=== PATIENT | female | born 1980 | race Asian ===

== ENCOUNTER 2017-08-07 07:50 | Emergency (ER) | payer SELFPAY ==
[~2017-08-07] VITALS: Ht 160 cm; Wt 59.0 kg
[2017-08-07] MEDS ORDERED: TRAZ-129 PO (07:58)
[2017-08-07] MEDS ORDERED: ALBUTEROL (0.083%) 2.5MG/3ML NEB HHN STA (14:09)
[2017-08-07 16:20] VITALS: BP 112/70
== END 2017-08-07 16:23 | disposition home or self-care (01) ==
LOC: ER 08:01
DX: J20.9 Acute bronchitis, unspecified (principal); F17.210 Nicotine dependence, cigarettes, uncomplicated; F20.9 Schizophrenia, unspecified; Z86.19 Personal history of other infectious and parasitic diseases
CPT/HCPCS: 71010; 81025; 94640; 99283; J7611